=== PATIENT | male | born 1950 | race Two or more races ===

== ENCOUNTER 2022-02-08 09:52 | Outpatient (CLI) | payer OTHER | END 2022-02-08 09:57 | disposition home or self-care (01) | LOC: SONOGRAMA 09:52 | PROVIDERS: ATTEND Pathology Anatomic Pathology & Clinical Pathology | DX: E04.1 Nontoxic single thyroid nodule (principal) ==

== ENCOUNTER → 2024-10-22 | Outpatient (CLI) | payer OTHER | END | disposition home or self-care (01) | LOC: MRI 12:36 | PROVIDERS: ATTEND Psychiatry & Neurology Clinical Neurophysiology | DX: G95.9 Disease of spinal cord, unspecified (principal); R27.0 Ataxia, unspecified; R53.1 Weakness; R20.0 Anesthesia of skin | CPT/HCPCS: 72141 ==